=== PATIENT | female | born 1955 | race Caucasian/White ===

== ENCOUNTER 2017-04-12 18:39 | Inpatient (IN) | payer OTHER ==
[~2017-04-12] VITALS: Ht 172.7 cm; Wt 74.8 kg
[2017-04-12 19:10] VITALS: BP 120/65
--- NOTE | 2017-04-12 19:10 | NUR ---
INTAKE ASSESSMENT BP:120/65, HR: 96, RR:18, SpO2: 95%, T: 98.1 Pt is in stable condition and is able to be admitted on the unit. Unit protocols regarding medications and vital signs Q4H were explained to pt. Pt verbalized understanding. Will continue admission process upon arrival on unit.
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
[2017-04-12] MEDS ORDERED: ACETAMINOPHEN 325 MG TABLET PO PRN (20:00)
[2017-04-12] MEDS ORDERED: MIRALAX 17 GM POWD.PACK PO PRN (20:00)
[2017-04-12] MEDS ORDERED: HYDROXYZINE PAMOATE 25 MG CAPSULE PO PRN (20:00)
[2017-04-12] MEDS ORDERED: LORAZEPAM 2 MG/1 ML VIAL IM PRN (20:00)
[2017-04-12] MEDS ORDERED: LORAZEPAM 1 MG TABLET PO PRN (20:00)
[2017-04-12] MEDS ORDERED: ONDANSETRON 4 MG/2 ML VIAL IM PRN (20:00)
[2017-04-12] MEDS ORDERED: DICYCLOMINE HCL 20 MG TABLET PO PRN (20:00)
[2017-04-12] MEDS ORDERED: THIAMINE HCL 200 MG/2 ML VIAL IM ONE (20:00)
[2017-04-12] MEDS ORDERED: MAGNESIUM HYDROXIDE 30 ML LIQUID UDC PO PRN (20:00)
[2017-04-12] MEDS ORDERED: MAG HYDROX/AL HYDROX/SIMETH 30 ML LIQUID UDC PO PRN (20:00)
[2017-04-12] MEDS ORDERED: LOPERAMIDE HCL 2 MG CAPSULE PO PRN ×2 (20:00)
[2017-04-12] MEDS ORDERED: IBUPROFEN 400 MG TABLET PO PRN (20:00)
--- NOTE | 2017-04-12 20:15 | NUR ---
RN note Trazodone and Neurontin Pt verbalized that she needs to take her Trazodone 50 mg PO HS and Neurontin 900 mg PO HS. Contacted Dr. Bob and ordered these medications. Entered at [facility] and to be administered by Primary Nurse.
[2017-04-12] MEDS: LORAZEPAM 1 MG TABLET PO PRN (20:28)
--- NOTE | 2017-04-12 20:32 | NUR ---
PRN ATIVAN Pt noted to be anxious, agitated and restless. CIWA:8. PRN Ativan 1 mg administered as ordered. Safety measures in place. Will monitor effectiveness.
[2017-04-12] MEDS ORDERED: THIAMINE HCL 200 MG/2 ML VIAL ONE (20:35)
[2017-04-12] MEDS ORDERED: LORAZEPAM 1 MG TABLET ONE (20:36)
[2017-04-12] MEDS: TRAZODONE 50 MG TABLET PO SCH (20:38)
[2017-04-12] MEDS: GABAPENTIN 300 MG CAPSULE PO SCH (20:38)
--- NOTE | 2017-04-12 20:38 | NUR ---
MEDICATION REFUSAL Vit B1 injection refused. Risks/benefits explained x3, pt still refused. Safety measures in place. Will monitor.
[2017-04-12] MEDS ORDERED: GABAPENTIN 300 MG CAPSULE ONE (20:47)
[2017-04-12] MEDS ORDERED: TRAZODONE 50 MG TABLET ONE (20:47)
--- NOTE | 2017-04-12 21:32 | NUR ---
PRN ATIVAN REASSESSMENT PRN Ativan effective. Pt lying in bed with eyes closed noted to be asleep. No facial grimacing noted. Breathing even and unlabored, respirations 16. Safety measures in place. Will continue to monitor.
[2017-04-12 22:27] LABS: *AMPHETAMINE, URINE POSITIVE (NEGATIVE); *BARBITURATE, URINE NEGATIVE (NEGATIVE); *CANNABINOID, URINE NEGATIVE (NEGATIVE); *COCCAINE, URINE NEGATIVE (NEGATIVE); *OPIATE, URINE NEGATIVE (NEGATIVE); *PHENCYCLIDINE SCREEN,URINE NEGATIVE (NEGATIVE)
--- NOTE | 2017-04-12 22:40 | NUR ---
RN note refusal for blood draw Pt refused blood draw for the second time. Pt got agitated when explained of the risks and benefits. Pt requested for blood draw to be done in the morning. Dr. Bob made aware.
[2017-04-12] MEDS ORDERED: TRAZ-144 PO (23:05)
[2017-04-12] MEDS ORDERED: QUET25TA PO (23:05)
[2017-04-12] MEDS ORDERED: LEVO500T2 PO (23:05)
[2017-04-12] MEDS ORDERED: GABA-534 PO (23:05)
--- NOTE | 2017-04-13 | NUR ---
VITALS REFUSED, CIWA DEFERRED 0000 vitals refused by pt. CIWA deferred d/t pt lying in bed with eyes closed noted to be asleep. Breathing even and unlabored, respirations 16, safety measures in place. Will continue to monitor.
--- NOTE | 2017-04-13 04:00 | NUR ---
VITALS REFUSED, CIWA DEFERRED 0400 vitals refused. CIWA deferred d/t pt lying in bed with eyes closed noted to be asleep. Breathing is even and unlabored, respirations 16, safety measures in place. Will monitor.
[2017-04-13] MEDS: LORAZEPAM 1 MG TABLET PO PRN (06:47)
--- NOTE | 2017-04-13 06:47 | NUR ---
PRN ATIVAN Pt complains of sweats, anxiety, agitation and restlessness. CIWA:9. PRN Ativan 1 mg administered as ordered, safety measures in place. Will endorse to oncoming shift to reassess.
[2017-04-13] MEDS ORDERED: LORAZEPAM 1 MG TABLET ONE (06:52)
--- NOTE | 2017-04-13 06:59 | NUR ---
END OF SHIFT Pt is a 62 year old female patient admitted on 04/12/17 for ETOH and meth dependency. Pt is full code with NKA. She reports a PMHx of depression, seizure related to withdrawal 10 years ago, chronic back pain related to fall off ladder many years ago, and neuropathy of bilateral lower legs. At 2037 she received PRN Ativan 1 mg d/t CIWA of 8. At 646 she received Ativan 1 mg for CIWA:9. She slept a total of 8 hrs, Intake: 855mL, Void: x2, BM:0, CIWA:8. Pt remains alert and oriented x4, breathing is even and unlabored, and safety measures in place. Endorsed to oncoming shift.
--- NOTE | 2017-04-13 07:30 | NUR ---
PRN REASSESSMENT patient reports no relief in symptoms.she states she is still anxious, agitated, and restless. She presents with tremors. her CIWA has increased to 12. Will monitor.
[2017-04-13 08:00] VITALS: BP 125/72
--- NOTE | 2017-04-13 08:00 | NUR ---
START OF SHIFT NOTE Received patient this morning Aox4. Patient states she has a headache, shes anxious and very shakey. She presents tremulous and agitated. No taper ordered yet. PRN Ativan given x2 per night nurse. CIWA 12 at 0800 this morning. Patient slept 8 hours. Encouraged patient to increase fluid intake. Encouraged patient to rest this shift and notify RN if s/s of w/d worsen. Vital signs stable. Will provide safe and supportive environment. Will monitor closely and offer help as needed. All needs currently met.
[2017-04-13] MEDS: THIAMINE HCL 100 MG TABLET PO SCH (08:13)
[2017-04-13] MEDS: CLONIDINE HCL 0.1 MG TABLET PO PRN ×2 (08:14→20:17)
[2017-04-13] MEDS: FOLIC ACID 1 MG TABLET PO SCH (08:14)
--- NOTE | 2017-04-13 08:15 | NUR ---
PRN MEDICATION PRN CLONIDINE GIVEN FOR ANXIETY AND SWEATS. CIWA 12. WILL REASSESS
[2017-04-13] MEDS: MULTIVITAMINS,THERAPEUTIC TABLET PO SCH (08:19)
[2017-04-13] MEDS ORDERED: TUBERCULIN,PURIF.PROT.DERIV. 5 TU/0.1 ML TEST ID ONE (09:00)
--- NOTE | 2017-04-13 09:00 | NUR ---
PRN REASSESSMENT PATIENT SLEEPING IN BED WITH RR EVEN AND UNLABORED. PATIENT APPEARS LESS ANXIOUS AND IS CALMLY IN BED. BED LOCKED AND IN LOWEST POSITION CALL HERNDON WITHIN REACH
[2017-04-13 10:06] LABS: BASOPHILS % (AUTO) 0.6 % (0.0-2.0); EOSINOPHILS # (AUTO) 0.1 K/uL (0.0-0.7); HEMATOCRIT 38.2 % (37-47); HEMOGLOBIN 12.9 G/DL (12.0-16.0); LYMPHOCYTES # (AUTO) 1.1 K/UL (0.8-4.8); LYMPHOCYTES % (AUTO) 24.2 % (20.5-51.5); MEAN CORPUSCULAR HEMOGLOBIN 35.4 UUG (27.0-31.0); MEAN CORPUSCULAR HGB CONC 34 g/dL (32.0-37.0); MEAN CORPUSCULAR VOLUME 105.1 FL (81.0-99.0); MONOCYTES # (AUTO) 0.6 K/UL (0.1-1.30); MONOCYTES % (AUTO) 12.8 % (0.0-11.0); NEUTROPHILS # (AUTO) 2.5 K/UL (1.8-8.9); NEUTROPHILS % (AUTO) 60.4 % (38.5-71.5); PLATELET COUNT (AUTO) 137 K/UL (150-450); RED BLOOD CELL COUNT(AUTO) 3.63 MIL/UL (4.2-5.4); WHITE BLOOD COUNT (AUTO) 4.4 K/UL (4.0-11.2)
[2017-04-13 10:16] LABS: ETHANOL < 3 MG/DL (0-0)
[2017-04-13 10:17] LABS: ALANINE AMINOTRANSFERASE 73 U/L (14-59); ALKALINE PHOSPHATASE 68 U/L (50-136); AMYLASE 81 U/L (25-115); ASPARTATE AMINOTRANSFERASE 105 U/L (15-37); BILIRUBIN,TOTAL 0.9 mg/dL (0.2-1.0); CARBON DIOXIDE 27 mmol/L (21-32); CHLORIDE 104 mmol/L (98-107); GLUCOSE 134 mg/dL (74-106); LIPASE 264 U/L (73-393); MAGNESIUM 1.3 mg/dL (1.8-2.4); POTASSIUM 3.4 mmol/L (3.5-5.1); TOTAL PROTEIN, SERUM 6.4 g/dL (6.4-8.2); UREA NITROGEN, BLOOD 21 mg/dL (7-18)
[2017-04-13 10:30] LABS: THYROID STIMULATING HORMONE 1.248 mIU/mL (0.358-3.740)
[2017-04-13] MEDS: LORAZEPAM 1 MG TABLET PO SCH ×4 (10:37→20:17)
[2017-04-13 12:00] VITALS: BP 111/63
[2017-04-13] MEDS: GABAPENTIN 300 MG CAPSULE PO SCH ×3 (14:18→21:00)
[2017-04-13] MEDS ORDERED: MAGNESIUM OXIDE 400 MG TABLET PO ONE (15:00)
[2017-04-13] MEDS ORDERED: POTASSIUM CHLORIDE 20 MEQ TAB.PRT.SR PO ONE (15:00)
[2017-04-13 16:00] VITALS: BP 116/71
--- NOTE | 2017-04-13 18:51 | NUR ---
END OF SHIFT NOTE Patient started on 5 day Ativan taper during shift and tolerating well. PRN clonidine given at 0815 with effectiveness. Last CIWA 8. Patient presents tremulous during shift. Patient did not attend groups or activities. She isolated self in room most of shift and slept. Patient ate all of meals. Vital signs stable. All needs have been met. Safety measures in place. Will endorse to night nurse
[2017-04-13 20:00] VITALS: BP 120/62
--- NOTE | 2017-04-13 20:00 | NUR ---
Start of Shift Note: Report received from day shift nurse. Pt is a 62 Y/O female admitted on 04/12/2017 for medically-supervised withdrawal from ETOH and methamphetamine. Pt reports drinking 750ml vodka daily for two years and occasional use of methamphetamine. Pt is on a 5-day Ativan taper. Pt received with last CIWA=8, and PRN Catapres was given during day shift. Full code, NKA, on a regular diet. Pt reports PMHx: depression, Hx of SZ r/t withdrawal, chronic back pain, and neuropathy. Pt received in room and reports anxiety, nausea, tremor, tactile disturbances, headache; patient is disoriented by date > 2 days. Bed is in low position and locked, side rails up x2, call light within reach. Will continue to monitor.
[2017-04-13] MEDS: ONDANSETRON ODT 4 MG TAB.RAPDIS SL PRN (20:17)
[2017-04-13] MEDS: TRAZODONE 50 MG TABLET PO SCH (20:17)
[2017-04-13] MEDS: QUETIAPINE FUMARATE 25 MG TABLET PO SCH (20:18)
--- NOTE | 2017-04-13 20:21 | NUR ---
PRN's Zofran, Motrin, Clonidine: Patient complains of nausea. Administered PRN Zofran SL as ordered. Patient complains of severe headache. Patient rates pain 8/10. Administered PRN Motrin as ordered. Patient noted to be diaphoretic and with moderate bilateral hand tremor. Patient also complains of anxiety. Administered PRN Clonidine as ordered. Will continue to monitor.
[2017-04-13] MEDS ORDERED: TRAZODONE 50 MG TABLET PO SCH (21:00)
--- NOTE | 2017-04-13 21:25 | NUR ---
PRN Reassessment: Patient is in bed with eyes closed. Respirations are even and unlabored. No s/s of acute distress noted. PRN's Motrin, Clonidine, and Zofran effective.
[2017-04-14] VITALS: BP 87/52
--- NOTE | 2017-04-14 | NUR ---
CIWA Deferred: CIWA is deferred for sleep. V/S stable. All safety precautions are in place. Will continue to monitor. Addendum: 04/14/17 at 0136 by DARLENE RUSSELL RN Amended: Links added.
[2017-04-14 04:00] VITALS: BP 100/58
--- NOTE | 2017-04-14 04:00 | NUR ---
CIWA Deferred: CIWA assessment is deferred for sleep. V/S stable. All safety precautions are in place. Will continue to monitor. Addendum: 04/14/17 at 0455 by DALRENE RUSSELL RN Amended: Links added.
--- NOTE | 2017-04-14 06:48 | NUR ---
End of Shift Note: Pt is a 62 Y/O female admitted to [facility] on 04/12/2017 for medically-supervised withdrawal from ETOH and methamphetamine. Pt reports a PMHx of depression, Hx of SZ r/t withdrawal, chronic back pain, and neuropathy. Pt is a full code. Pt reports NKA. Pt is on a regular diet. Pt reported drinking 750ml vodka daily for two years and occasional use of methamphetamine and was placed on a 5-day Ativan taper. Scheduled medication regime effectively managed s/s of withdrawal this shift, in addition to PRN Motrin for headache, PRN Catapres for diaphoresis, and PRN Zofran for nausea. Last CIWA=18 at 20:00 before taper medications were administered. V/S stable throughout shift, with tachycardia. Total fluid intake this shift: 2065 ml oral; output: urine x 2 and BM x 0. Pt is currently in bed and slept 10 hours this shift. All needs attended and met. Pt endorsed to day shift nurse.
--- NOTE | 2017-04-14 07:56 | NUR ---
START OF SHIFT NOTE Received patient this morning laying in bed eating snacks watching TV. Patient reports feeling shakey this morning and slept on and off last night. She is on 5 day Ativan taper. Last CIWA 18 per night nurse. PRN Motrin, Clonidine, and Zofran given per finish production manager and patient slept 10 hours. Encouraged patient to increase fluid intake. Encouraged patient to attend groups and activities this shift. Will provide safe and supportive environment. Will monitor closely and offer help as needed. All needs currently met.
[2017-04-14 08:00] VITALS: BP 108/68
[2017-04-14] MEDS: THIAMINE HCL 100 MG TABLET PO SCH (08:28)
[2017-04-14] MEDS: GABAPENTIN 300 MG CAPSULE PO SCH ×4 (08:28→21:00)
[2017-04-14] MEDS: MULTIVITAMINS,THERAPEUTIC TABLET PO SCH (08:28)
[2017-04-14] MEDS: LORAZEPAM 1 MG TABLET PO SCH ×3 (08:28→20:06)
[2017-04-14] MEDS: FOLIC ACID 1 MG TABLET PO SCH (08:28)
--- NOTE | 2017-04-14 10:57 | NUR ---
Therapist prompted client about group times. Client stated she is not attending today because she does not feel well.
[2017-04-14 10:58] LABS: MAGNESIUM 1.5 mg/dL (1.8-2.4); POTASSIUM 4.4 mmol/L (3.5-5.1)
[2017-04-14 12:00] VITALS: BP 112/67
[2017-04-14] MEDS ORDERED: LORAZEPAM 1 MG TABLET PO ONE (12:30)
[2017-04-14] MEDS ORDERED: IBUPROFEN 400 MG TABLET PO PRN (13:30)
[2017-04-14] MEDS ORDERED: LORAZEPAM 1 MG TABLET PO PRN ×2 (13:30)
[2017-04-14] MEDS ORDERED: IBUPROFEN 600 MG TABLET PO PRN (14:00)
[2017-04-14] MEDS: DICYCLOMINE HCL 20 MG TABLET PO SCH ×3 (14:00→23:34)
[2017-04-14] MEDS: ACETAMINOPHEN ES 500 MG TABLET PO SCH ×2 (14:00→22:00)
[2017-04-14 14:08] LABS: HEPATITIS B SURFACE AG Negative (Negative)
[2017-04-14 16:00] VITALS: BP 117/69
[2017-04-14] MEDS ORDERED: MAGNESIUM OXIDE 400 MG TABLET PO ONE (18:15)
--- NOTE | 2017-04-14 18:25 | NUR ---
END OF SHIFT NOTE Patient continues on 5 day Ativan taper during shift and tolerating well. No PRNs given during shift as detox meds are effective. Last CIWA 6. Patient presents anxious and agitated during shift. Patient did not attend groups or activities. She isolated self in room most of shift and slept. Patient ate all of meals. Vital signs stable. All needs have been met. Safety measures in place. Will endorse to night nurse
--- NOTE | 2017-04-14 19:15 | NUR ---
START OF SHIFT Received 62 year old female admitted on 04/12/17 for ETOH dependency. Pt is full code with NKA. She reports a PMHx of depression, seizure r/t withdrawal 10 years ago, chronic back pain and neuropathy. She reports drinking vodka 1/5th daily for 2 years. Last dose was a " couple of beers and shots" on 04/12/17. Pt also reports occasionally smoking methamphetamine a " few hits". Last dose was 04/09/17. She is placed on a 5 day Ativan taper and tolerating well. Pt is alert and oriented x4, breathing is even and unlabored. Safety measures in place. Will continue to monitor.
[2017-04-14 20:01] VITALS: BP 105/60
[2017-04-14] MEDS: TRAZODONE 50 MG TABLET PO SCH (20:06)
[2017-04-14] MEDS: QUETIAPINE FUMARATE 25 MG TABLET PO SCH (20:06)
--- NOTE | 2017-04-14 23:34 | NUR ---
MEDICATION REFUSAL Pt refused 2200 dose of Tylenol 1,000 mg and 0000 dose of Bentyl. Risks/benefits explained x3, pt still refused. Breathing is even and unlabored, safety measures in place. Will continue to monitor.
--- NOTE | 2017-04-15 | NUR ---
VITALS REFUSED/CIWA DEFERRED 0000 vitals refused. CIWA deferred d/t pt lying in bed with eyes closed noted to be asleep. Respirations 16, breathing is even and unlabored. Safety measures in place. Will monitor.
--- NOTE | 2017-04-15 04:00 | NUR ---
VITALS REFUSED/CIWA DEFERRED 0400 vitals refused. CIWA deferred d/t pt lying in bed with eyes closed noted to be asleep. Respirations 16, breathing is even and unlabored. Safety measures in place. Will monitor.
--- NOTE | 2017-04-15 05:23 | NUR ---
PRN VISTARIL Pt complains of anxiety/restlessness. PRN Vistaril administered as ordered. Breathing even and unlabored, safety measures in place. Will monitor effectiveness.
[2017-04-15] MEDS: DICYCLOMINE HCL 20 MG TABLET PO SCH ×3 (05:25→18:00)
[2017-04-15] MEDS: ACETAMINOPHEN ES 500 MG TABLET PO SCH ×3 (05:28→21:21)
--- NOTE | 2017-04-15 06:23 | NUR ---
PRN VISTARIL REASSESSMENT PRN medication effective. Pt lying comfortably in bed with eyes closed, noted to be asleep. No facial grimacing noted. Respirations 16, breathing even and unlabored. Safety measures in place. Will monitor.
--- NOTE | 2017-04-15 07:09 | NUR ---
END OF SHIFT Pt is a 62 year old female admitted on 04/12/17 for ETOH dependency. Pt is full code with NKA. She reports a PMHx of depression, seizure r/t withdrawal 10 years ago, chronic back pain and neuropathy. She continues on a 5 day Ativan taper and tolerating well. She refused her 2200 dose of Tylenol and 0000 dose of Bentyl. At 0523 she received PRN Vistaril. She slept a total of 7 hrs, Intake: 1350mL, Void: x1, BM:0, CIWA:5. Pt remains alert and oriented x4, breathing is even and unlabored. Safety meaures in place. Endorsed to AM shift.
[2017-04-15 07:29] LABS: MAGNESIUM 1.3 mg/dL (1.8-2.4); POTASSIUM 4.2 mmol/L (3.5-5.1)
--- NOTE | 2017-04-15 08:08 | NUR ---
Start of Shift Received 62 year old female admitted on 04/12/17 for ETOH detoxification, pt also endorses occasional methamphetamine use. Pt is a full code, NKDA and on a regular diet. Pt is on seizure, universal and fall precautions. PMH of depression, seizure DO, r/t withdrawal 10 years ago, Neuropathy and chronic back pain. Pt has a healing scab on the right hand. Administered Vistaril, PRN, on NOC shift, but refused her scheduled Tylenol (2200 ) and Bentyl (0000). Pt slept for 7 hours. Currently on a 5 day Ativan taper, tolerating well. Last CIWA of 5 recorded at 1999. Pts gait noted to be unsteady at times, wheelchair at bedside. It is reported to be thinking of leaving today, possibly AMA. City Bus Driver encounters pt in bed resting with eyes closed, breathing even and unlabored, in no distress. Bed In low position, wheels locked and side rails up x2. All safety measures in place. Will continue to monitor, support and encourage according to plan of care.
[2017-04-15 08:50] VITALS: BP 120/76
[2017-04-15] MEDS: THIAMINE HCL 100 MG TABLET PO SCH (09:28)
[2017-04-15] MEDS: LORAZEPAM 1 MG TABLET PO SCH ×2 (09:28→12:04)
[2017-04-15] MEDS: MULTIVITAMINS,THERAPEUTIC TABLET PO SCH (09:28)
[2017-04-15] MEDS: GABAPENTIN 300 MG CAPSULE PO SCH ×3 (09:28→21:19)
[2017-04-15] MEDS: FOLIC ACID 1 MG TABLET PO SCH (09:28)
[2017-04-15 12:40] VITALS: BP 127/85
[2017-04-15] MEDS ORDERED: KETOROLAC TROMETHAMINE 30 MG INJ IM PRN (13:45)
[2017-04-15] MEDS ORDERED: HYDROXYZINE PAMOATE 25 MG CAPSULE PO SCH (14:00)
[2017-04-15] MEDS: MAGNESIUM OXIDE 400 MG TABLET PO SCH (14:10)
[2017-04-15] MEDS: HYDROXYZINE PAMOATE 25 MG CAPSULE PO SCH ×2 (14:11→21:20)
[2017-04-15] MEDS ORDERED: CLONIDINE HCL 0.1 MG TABLET PO PRN (14:15)
[2017-04-15] MEDS ORDERED: LORAZEPAM 1 MG TABLET PO SCH (15:00)
[2017-04-15] MEDS: SCOPOLAMINE HYDROBROMIDE 1.5 MG PATCH TD SCH (15:11)
[2017-04-15 16:50] VITALS: BP 112/75
--- NOTE | 2017-04-15 19:15 | NUR ---
START OF SHIFT Received 62 year old female admitted on 04/12/17 for ETOH dependency. Pt is full code with NKA. She reports a PMHx of depression, seizure r/t withdrawal 10 years ago, chronic back pain and neuropathy. She reports drinking vodka 1/5th daily for 2 years. Last dose was a " couple of beers and shots" on 04/12/17. Pt also reports occasionally smoking methamphetamine a " few hits". Last dose was 04/09/17. She is placed on a 5 day Ativan taper started on 04/13/17. Pt is currently on day 3/5 and tolerating well. Per endorsement, 1800 dose of Bentyl was held d/t pt was asleep. Pt is alert and oriented x4, breathing is even and unlabored. Safety measures in place. Will continue to monitor.
--- NOTE | 2017-04-15 19:30 | NUR ---
Start of Shift Report provided to oncoming nurse, pt in stable condition. Pt is a 62 year old female admitted on 04/12/17 for ETOH detoxification, pt also endorses occasional methamphetamine use. Pt is a full code, NKDA and on a regular diet. Pt is on seizure, universal and fall precautions. PMH of depression, seizure DO, r/t withdrawal 10 years ago, Neuropathy and chronic back pain. Pt has a healing scab on the right hand. No PRN medication administered on my shift. Currently on a 5 day Ativan taper, which was extended today with an increase to 2mg of Ativan from the scheduled 1mg, as pt complained of being under medicated. Last CIWA of 5 recorded at 1600. Pts gait noted to be unsteady at times, wheelchair at bedside. Pt has been mostly isolative to room, with little peer interaction. Pt has been in bed most of the shift and has been somnolent. Pt was irritable when stating she is not getting better and she was being under medicated. Pt mentioned leaving, but spoke with MD and decided to stay after MD made medication changes. Bed In low position, wheels locked and side rails up x2. All safety measures in place. Addendum: 04/15/17 at 1931 by CAROL HANNON RN END OF SHIFT
[2017-04-15 20:00] VITALS: BP 119/71
[2017-04-15] MEDS: QUETIAPINE FUMARATE 25 MG TABLET PO SCH (21:19)
[2017-04-15] MEDS: TRAZODONE 50 MG TABLET PO SCH (21:20)
--- NOTE | 2017-04-16 | NUR ---
VITALS REFUSED/CIWA DEFERRED 0000 vitals refused. CIWA deferred d/t pt lying in bed with eyes closed noted to be asleep. Respirations 16, breathing is even and unlabored. Safety measures in place. Will continue to monitor.
[2017-04-16] MEDS: HYDROXYZINE PAMOATE 25 MG CAPSULE PO SCH ×4 (02:15→20:36)
[2017-04-16] MEDS: DICYCLOMINE HCL 20 MG TABLET PO SCH ×5 (06:21→23:07)
[2017-04-16] MEDS: ACETAMINOPHEN ES 500 MG TABLET PO SCH ×3 (06:21→23:06)
--- NOTE | 2017-04-16 07:12 | NUR ---
END OF SHIFT Pt is a 62 year old female admitted on 04/12/17 for ETOH dependency. Pt is full code with NKA. She reports a PMHx of depression, seizure r/t withdrawal 10 years ago, chronic back pain and neuropathy. She continues on a 5 day Ativan taper started on 04/13/17. Pt is currently on day 4/5 and tolerating well. She did not receive or request PRN medications. Her 0000 dose of Bentyl and 0215 dose of Vistaril was held d/t pt was asleep. She slept a total of 10 hrs, Intake: 850mL, Void: x2, BM:x1. Pt remains alert and oriented x4, breathing is even and unlabored. Safety measures in place. Endorsed to oncoming shift.
--- NOTE | 2017-04-16 07:58 | NUR ---
Start of Shift Received 62 year old female admitted on 04/12/17 for ETOH detoxification, pt also endorses occasional methamphetamine use. Pt is a full code, NKDA and on a regular diet. Pt is on seizure, universal and fall precautions. PMH of depression, seizure DO, r/t withdrawal 10 years ago, Neuropathy and chronic back pain. Pt has a healing scab on the right hand. Pt did not receive any PRN medication during the night. Pt's Bentyl (0000) and Vistaril(0215) were held for sedation. Currently on a 5 day Ativan taper, tolerating well. Last CIWA of 5 recorded at 1999. Pts gait noted to be unsteady at times, wheelchair at bedside. End Lathe Operator encounters pt resting in bed. A/O x4, states, " I am feeling better." Endorses posssibly being over the difficult part of detoxification. Pt is calm and cooperative, able to make her needs known. Blunted affect and depressed mood. Bed In low position, wheels locked and side rails up x2. All safety measures in place. Will continue to monitor, support and encourage according to plan of care.
[2017-04-16 08:38] VITALS: BP 122/74
[2017-04-16] MEDS ORDERED: LORAZEPAM 1 MG TABLET PO SCH (09:00)
[2017-04-16] MEDS: GABAPENTIN 300 MG CAPSULE PO SCH ×3 (09:17→20:35)
[2017-04-16] MEDS: THIAMINE HCL 100 MG TABLET PO SCH (09:17)
[2017-04-16] MEDS: MAGNESIUM OXIDE 400 MG TABLET PO SCH (09:17)
[2017-04-16] MEDS: FOLIC ACID 1 MG TABLET PO SCH (09:17)
[2017-04-16] MEDS: MULTIVITAMINS,THERAPEUTIC TABLET PO SCH (09:17)
[2017-04-16] MEDS: LORAZEPAM 1 MG TABLET PO SCH ×4 (09:18→20:35)
[2017-04-16] MEDS ORDERED: FLUCONAZOLE 100 MG TABLET PO ONE (12:45)
[2017-04-16] MEDS ORDERED: AZITHROMYCIN 250 MG TABLET PO ONE (12:45)
[2017-04-16] MEDS ORDERED: METRONIDAZOLE 500 MG TABLET PO SCH (12:45)
[2017-04-16] MEDS ORDERED: AZITHROMYCIN 250 MG TABLET PO SCH (12:45)
[2017-04-16 13:11] VITALS: BP 114/79
[2017-04-16] MEDS ORDERED: MAGNESIUM OXIDE 400 MG TABLET PO ONE (14:00)
[2017-04-16 17:32] VITALS: BP 124/96
--- NOTE | 2017-04-16 19:08 | NUR ---
End of Shift Report provided to night worker with no further comments, questions or concerns voiced. Pt is a 62 year old female admitted on 04/12/17 for ETOH detoxification, pt also endorses occasional methamphetamine use. Pt is a full code, NKDA and on a regular diet. Pt is on seizure, universal and fall precautions. PMH of depression, seizure DO, r/t withdrawal 10 years ago, Neuropathy and chronic back pain. Pt has a healing scab on the right hand. Pt did not request any PRN medication this shift, but does complain she is not getting enough Ativan, although, pt endorses feeling much better then yesterday. Currently on a 5 day Ativan taper, tolerating well. Last CIWA of 4 recorded at 1600. Pts gait noted to be unsteady at times, wheelchair at bedside. Pt is calm and cooperative, able to make her needs known. Blunted affect and depressed mood. Pt lacks personal hygiene and is malodorous with trash strewn about room. Bed In low position, wheels locked and side rails up x2. All safety measures in place per hospital policy.
--- NOTE | 2017-04-16 19:15 | NUR ---
START OF SHIFT Received 62 year old female admitted on 04/12/17 for ETOH dependency. Pt is full code with NKA. She reports a PMHx of depression, seizure r/t withdrawal 10 years ago, chronic back pain and neuropathy. She reports drinking vodka 1/5th daily for 2 years. Last dose was a " couple of beers and shots" on 04/12/17. Pt also reports occasionally smoking methamphetamine a " few hits". Last dose was 04/09/17. She is placed on a 5 day Ativan taper started on 04/13/17. Pt is currently on day 4/5 and tolerating well. Per endorsement, pt did not receive or request PRN medications. Pt is alert and oriented x3, somewhat confused, breathing is even and unlabored. Safety measures in place. Will continue to monitor.
[2017-04-16 20:00] VITALS: BP 130/93
[2017-04-16] MEDS: QUETIAPINE FUMARATE 25 MG TABLET PO SCH (20:34)
[2017-04-16] MEDS: TRAZODONE 50 MG TABLET PO SCH (20:35)
[2017-04-17] VITALS: BP 116/79
--- NOTE | 2017-04-17 | NUR ---
CIWA DEFERRED CIWA deferred d/t pt lying in bed with eyes closed noted to be asleep. Respirations 16, breathing is even and unlabored. Safety measures in place. Will continue to monitor.
[2017-04-17] MEDS: HYDROXYZINE PAMOATE 25 MG CAPSULE PO SCH ×4 (02:15→21:50)
[2017-04-17 04:00] VITALS: BP 122/72
[2017-04-17] MEDS: ACETAMINOPHEN ES 500 MG TABLET PO SCH ×3 (06:03→21:51)
[2017-04-17] MEDS: DICYCLOMINE HCL 20 MG TABLET PO SCH ×3 (06:03→17:46)
--- NOTE | 2017-04-17 07:23 | NUR ---
END OF SHIFT Pt is a 62 year old female admitted on 04/12/17 for ETOH dependency. Pt is full code with NKA. She reports a PMHx of depression, seizure r/t withdrawal 10 years ago, chronic back pain and neuropathy. She is placed on a 5 day Ativan taper started on 04/13/17. Pt is currently on day 5/5 and tolerating well. Pt did not receive or request PRN medications. Pt is alert and oriented x2, and experienced confusion during the shift. Pt was able to be redirected. She slept a total of 3 hrs, Intake: 1065mL Void: x3 BM:0 CIWA:4. Breathing is even and unlabored. Safety measures in place. Endorsed to oncoming shift.
[2017-04-17 08:00] VITALS: BP 135/82
[2017-04-17] MEDS: FOLIC ACID 1 MG TABLET PO SCH (08:13)
[2017-04-17] MEDS: MAGNESIUM OXIDE 400 MG TABLET PO SCH (08:13)
[2017-04-17] MEDS: THIAMINE HCL 100 MG TABLET PO SCH (08:13)
[2017-04-17] MEDS: MULTIVITAMINS,THERAPEUTIC TABLET PO SCH (08:13)
[2017-04-17] MEDS: LORAZEPAM 1 MG TABLET PO SCH ×3 (08:13→21:51)
[2017-04-17] MEDS: GABAPENTIN 300 MG CAPSULE PO SCH ×3 (08:13→21:50)
[2017-04-17] MEDS: IBUPROFEN 600 MG TABLET PO PRN (08:45)
--- NOTE | 2017-04-17 08:45 | NUR ---
PRN IBUPROFEN Patient complained of body aches and headache 03/08. PRN ibuprofen given . Will continue to monitor patient.
--- NOTE | 2017-04-17 08:54 | NUR ---
START OF SHIFT Received report from table games shift manager nurse. Patient is 62 year old female admitted for medically supervised withdrawal from alcohol. Patient is full code with NKA. On assessment this AM: CIWA: 7. Denies SOB, chest pain. vitals signs WNL. Reports anxiety, mild tremors, headache 6/10 and visual hallucinations. Med compliant with AM meds. On 5-day Ativan taper. PRN ibuprofen given. Patient was noted in a wheelchair assisted by tech, able to transfer independently. Tolerating breakfast without n/v at this time. ill continue to monitor patient. Patient was encouraged to attend group meetings today. Will continue to monitor patient.
[2017-04-17 08:58] LABS: MAGNESIUM 1.7 mg/dL (1.8-2.4); POTASSIUM 4.8 mmol/L (3.5-5.1)
[2017-04-17] MEDS ORDERED: LORAZEPAM 1 MG TABLET PO SCH ×2 (09:00→17:00)
[2017-04-17 09:13] LABS: BASOPHILS % (AUTO) 0.6 % (0.0-2.0); EOSINOPHILS # (AUTO) 0.1 K/uL (0.0-0.7); EOSINOPHILS % (AUTO) 1.9 % (0.0-7.0); HEMATOCRIT 39.3 % (37-47); HEMOGLOBIN 12.5 G/DL (12.0-16.0); LYMPHOCYTES # (AUTO) 0.9 K/UL (0.8-4.8); LYMPHOCYTES % (AUTO) 23.8 % (20.5-51.5); MEAN CORPUSCULAR HEMOGLOBIN 33.7 UUG (27.0-31.0); MEAN CORPUSCULAR HGB CONC 32 g/dL (32.0-37.0); MEAN CORPUSCULAR VOLUME 105.5 FL (81.0-99.0); MONOCYTES # (AUTO) 0.5 K/UL (0.1-1.30); MONOCYTES % (AUTO) 13.1 % (0.0-11.0); NEUTROPHILS # (AUTO) 2.3 K/UL (1.8-8.9); NEUTROPHILS % (AUTO) 60.6 % (38.5-71.5); PLATELET COUNT (AUTO) 146 K/UL (150-450); RED BLOOD CELL COUNT(AUTO) 3.72 MIL/UL (4.2-5.4); WHITE BLOOD COUNT (AUTO) 3.8 K/UL (4.0-11.2)
[2017-04-17 12:00] VITALS: BP 114/65
[2017-04-17] MEDS ORDERED: MAGNESIUM OXIDE 400 MG TABLET PO ONE (14:00)
[2017-04-17 14:09] LABS: *BILIRUBIN,URIN NEGATIVE (NEGATIVE); *BLOOD, URINE NEGATIVE (NEGATIVE); *CLARITY,URINE CLEAR (CLEAR); *COLOR,URINE YELLOW (YELLOW); *KETONES,URINE NEGATIVE (NEGATIVE); *PROTEIN,URINE NEGATIVE (NEGATIVE); *UROBILINOGEN,URINE 0.2 E.U./dl (NORMAL); LEUKOCYTE ESTERASE ,URINE TRACE (NEGATIVE); NITRITE, URINE NEGATIVE (NEGATIVE); UGLUCOSE NEGATIVE (NEGATIVE)
[2017-04-17 14:12] LABS: BACTERIA,URINE NONE SEEN /HPF (NONE SEEN); RBC,URINE NONE SEEN /HPF (0-3); WBC,URINE 0-3 /HPF (0-3)
[2017-04-17 14:13] LABS: SQUAMOUS EPITHELIAL CELL,UR FEW /HPF (NONE SEEN)
[2017-04-17 16:00] VITALS: BP 143/89
--- NOTE | 2017-04-17 17:16 | NUR ---
PRN KETOROLAC IM INJECTION Patient complains of headache 07/08. PRN ketorolac IM injection given. Will continue to monitor patient.
--- NOTE | 2017-04-17 18:16 | NUR ---
REASSESSMENT PRN KETOROLAC IM INJECTION Patient reports 0/10 pain level, med effective.
--- NOTE | 2017-04-17 18:34 | NUR ---
END OF SHIFT Received report from manufacturing supervisor 2nd shift nurse. Patient is 62 year old female admitted for medically supervised withdrawal from alcohol. Patient is full code with NKA. Most recent CIWA: 7. Patient reports anxiety, tremors and headache. PRN ketorolac IM injection given for pain 10/10, effective, pt, reports no pain after an hour. Compliant with routine meds during this shift. Patient tolerating meals without n/v. area secretarymanufacturing supervisor 2nd shift will continue to monitor patient.
--- NOTE | 2017-04-17 20:00 | NUR ---
START OF SHIFT Patient is 62 year old female admitted for medically supervised withdrawal from alcohol. Patient is full code with NKA. Most recent CIWA: 4. Patient reports anxiety and tremors. Denies pain, headache and n/v. Patient is anxious but cooperative, will continue to monitor patient.
[2017-04-17 20:42] VITALS: BP 127/81
[2017-04-17] MEDS: QUETIAPINE FUMARATE 25 MG TABLET PO SCH (21:50)
[2017-04-17] MEDS: TRAZODONE 50 MG TABLET PO SCH (21:51)
--- NOTE | 2017-04-18 | NUR ---
Pt is resting, no distress noted. Addendum: 04/18/17 at 0017 by JAI ISAAC RN Amended: Links added.
[2017-04-18] MEDS: DICYCLOMINE HCL 20 MG TABLET PO SCH ×4 (00:04→17:21)
[2017-04-18] MEDS: HYDROXYZINE PAMOATE 25 MG CAPSULE PO SCH ×4 (02:28→21:06)
[2017-04-18 04:00] VITALS: BP 134/94
[2017-04-18] MEDS: ACETAMINOPHEN ES 500 MG TABLET PO SCH ×3 (05:39→21:07)
--- NOTE | 2017-04-18 07:19 | NUR ---
End of Shift Patient is 62 year old female admitted for medically supervised withdrawal from alcohol. Patient is full code with NKA. Most recent CIWA: 7. Patient reports anxiety and tremors. Denies pain, headache and n/v. Patient is anxious and confused, but cooperative. Slept 4.75 during shift. No distress noted, will continue to monitor patient.
--- NOTE | 2017-04-18 07:55 | NUR ---
Start of Shift Received 62 year old female admitted on 04/12/17 for ETOH detoxification, pt also endorses occasional methamphetamine use. Pt is a full code, NKDA and on a regular diet. Pt is on seizure, universal and fall precautions. PMH of depression, seizure DO, r/t withdrawal 10 years ago, Neuropathy and chronic back pain. Pt has a healing scab on the right hand. Pt did not receive any PRN medication during the night. Currently on a 5 day Ativan taper, tolerating well. Last CIWA of 7 recorded at 0400. Pts gait noted to be unsteady at times, wheelchair at bedside. Radial Drill Press Set Up Operator encounters pt resting in bed. A/O x4, states, calm and cooperative, able to make her needs known. Blunted affect and depressed mood. Pt was noted to have confusion and some delusions early this morning, was found to be wandering and speaking to self, per report. Bed In low position, wheels locked, side rails up x2 and call light within reach. All safety measures in place. Will continue to monitor, support and encourage according to plan of care.
[2017-04-18 08:12] VITALS: BP 117/76
[2017-04-18 08:26] LABS: MAGNESIUM 1.9 mg/dL (1.8-2.4); POTASSIUM 4.7 mmol/L (3.5-5.1)
[2017-04-18] MEDS: FOLIC ACID 1 MG TABLET PO SCH (08:32)
[2017-04-18] MEDS: SCOPOLAMINE HYDROBROMIDE 1.5 MG PATCH TD SCH (08:32)
[2017-04-18] MEDS: GABAPENTIN 300 MG CAPSULE PO SCH ×3 (08:32→21:06)
[2017-04-18] MEDS: MULTIVITAMINS,THERAPEUTIC TABLET PO SCH (08:32)
[2017-04-18] MEDS: THIAMINE HCL 100 MG TABLET PO SCH (08:32)
[2017-04-18] MEDS ORDERED: LORAZEPAM 1 MG TABLET PO SCH (09:00)
[2017-04-18 12:00] VITALS: BP 139/91
--- NOTE | 2017-04-18 12:11 | NUR ---
Endorsement Newsroom Intern provided report to accepting nurse with no further comments, questions or concerns. Pt is a 62 year old female admitted on 04/12/17 for ETOH detoxification, pt also endorses occasional methamphetamine use. Pt is a full code, NKDA and on a regular diet. Pt is on seizure, universal and fall precautions. PMH of depression, seizure DO, r/t withdrawal 10 years ago, Neuropathy and chronic back pain. Pt has a healing scab on the right hand. Pt did not receive any PRN medication during my shift. Pt has been calm and cooperative and able to make needs known. No s/s of distress noted. Bed in low position, wheels locked, side rails up x2 and call light in reach. All safety measures in place per hospital policy. Will continue to monitor, support and encourage according to plan of care.
--- NOTE | 2017-04-18 12:30 | NUR ---
TRANSFER CARE OF PATIENT Received report on patient. Patient is alert and stable. All safety measures in place. Will continue to monitor.
[2017-04-18 16:00] VITALS: BP 125/90
--- NOTE | 2017-04-18 18:45 | NUR ---
END OF SHIFT REPORT Patient is alert and orientated at times. Patients room is near nurses station and is closely being monitored. Patient is confused at time but is aware of her situation. Patients vital signs are WNL Last CIWA 5. Patient has been complaint with medication treatment and MDs orders. Patient is on a Ativan taper and is tolerating well. No PRN medications given during day shift. All safety measures are in place, call light within reach, bed locked and in lowest position. All needs have been met. Will endorse to oncoming night nurse.
--- NOTE | 2017-04-18 19:00 | NUR ---
Start of Shift Patient Received. Patient is a 62 year old female that was admitted on 04/12/17 for ETOH Dependence under the care of Dr. Bob. Patient is currently receiving a 5 day Ativan taper. Patient verbalizes no known allergies, wishes to be full code, following a regular diet, skin intact, placed on fall and seizure precautions. Patients past medical history noted as Depression, Seizure Related to withdrawal approx 10 years ago, chronic back pain, neuropathy. Per endorsement, patient noted with episodes of confusion. Last noted CIWA is 8. All needs attended to promptly. Will continue to monitor.
[2017-04-18 20:08] VITALS: BP 138/85
[2017-04-18] MEDS ORDERED: LORAZEPAM 1 MG TABLET PO ONE (21:00)
[2017-04-18] MEDS: TRAZODONE 50 MG TABLET PO SCH (21:06)
[2017-04-18] MEDS: LACTOBACILLUS RHAMNOSUS GG 1 EACH CAPSULE PO SCH (21:06)
[2017-04-18] MEDS: NITROFURANTOIN/NITROFURAN MAC 100 MG CAPSULE PO SCH (21:06)
[2017-04-18] MEDS: QUETIAPINE FUMARATE 25 MG TABLET PO SCH (21:07)
[2017-04-19 00:19] VITALS: BP 128/89
[2017-04-19] MEDS: DICYCLOMINE HCL 20 MG TABLET PO SCH ×4 (00:21→18:21)
[2017-04-19] MEDS: diphenhydrAMINE 50 MG CAPSULE PO PRN (02:29)
[2017-04-19] MEDS: IBUPROFEN 600 MG TABLET PO PRN ×2 (02:29→10:43)
[2017-04-19] MEDS: HYDROXYZINE PAMOATE 25 MG CAPSULE PO SCH ×4 (02:30→20:46)
--- NOTE | 2017-04-19 02:32 | NUR ---
PRN Medication Administration Patient noted awake, restless, noted with increased tremors, slight agitation, and verbalizing increased pain of 5/10 due to a headache and inability of falling asleep. PRN Motrin, Vistaril and Benadryl administered. Will continue to monitor.
--- NOTE | 2017-04-19 03:30 | NUR ---
PRN Medication Reassessment Patient returning from smoking patio and is able to verbalize "my headache is gone and I feel like I can go back to sleep now." PRN Benadryl, Vistaril, and Motrin noted to be effective. Will continue to monitor.
[2017-04-19 04:06] VITALS: BP 127/83
[2017-04-19] MEDS: ACETAMINOPHEN ES 500 MG TABLET PO SCH ×3 (05:11→22:00)
--- NOTE | 2017-04-19 07:12 | NUR ---
End of Shift Patient is in bed awake and alert to name. Breathing even and non labored. No pain or discomfort noted. Patient is a 62 year old female admitted for ETOH Dependence and receiving a 5 day Ativan taper. Patient continues with episodes of confusion with numerous attempts of redirection and reorientation. Patient noted to sleep in intervals and sleeping a total of 3 hours. Patient noted to state "I hope I get a psych evaluation before I leave here." Patient was given PRN Motrin, Vistaril, and Benadryl with medication noted to be effective per patient. All needs attended to promptly. Will endorse to continue with plan of care as ordered.
[2017-04-19 08:00] VITALS: BP 139/92
--- NOTE | 2017-04-19 08:00 | NUR ---
START OF SHIFT: RECEIVED PT A/O X 1 TO NAME ONLY. SHE STATES HER KIDS WERE HERE TODAY AND SHE WANTS TO LEAVE. SHE DENIES S/I AND H/I. PT STATES JONATHAN IS THE CURRENT PRESIDENT OF [place]. REORIENTED PT TO PLACE, TIME AND SITUATION. WILL MEDICATE ORDERED. CIWA 13. ATIVAN TAPER COMPLETED. WILL NOTIFY . ENCOURAGED INCREASED FLUIDS. WILL CONTINUE TO PROVIDE SAFE AND SUPPORTIVE ENVIRONMENT.
--- NOTE | 2017-04-19 08:25 | NUR ---
MD communication Pt noted to be confused, pt is AxOx1, oriented to name only. Attempted to contact Dr Bradshaw, awaiting returned phone call. Notified Dr Bob who stated to call crisis team if pt attempts to leave the unit. Pt attempted to leave the unit x 2, pt redirected, placed on a 1:1 and Susi from crisis team called. Will continue to monitor pt.
[2017-04-19] MEDS: LACTOBACILLUS RHAMNOSUS GG 1 EACH CAPSULE PO SCH ×2 (09:24→20:45)
[2017-04-19] MEDS: MULTIVITAMINS,THERAPEUTIC TABLET PO SCH (09:24)
[2017-04-19] MEDS: THIAMINE HCL 100 MG TABLET PO SCH (09:24)
[2017-04-19] MEDS: FOLIC ACID 1 MG TABLET PO SCH (09:25)
[2017-04-19] MEDS: GABAPENTIN 300 MG CAPSULE PO SCH ×3 (09:25→20:45)
[2017-04-19] MEDS: NITROFURANTOIN/NITROFURAN MAC 100 MG CAPSULE PO SCH ×2 (09:25→20:45)
--- NOTE | 2017-04-19 10:50 | NUR ---
PT REPORTS DIARRHEA AND H/A 5/10 ON PAIN SCALE.PRN IMODIUM AND MOTRIN GIVEN. SHE IS A/O X 4 AND STATES SHE WAS HALLUCINATING EARLIER AND SHE APOLOGIZED FOR BEING DIFFICULT. PT STATES THIS IS PART OF HER WITHDRAWAL PROCESS. WILL MONITOR EFFECTIVENESS OF PRNS. 1:1 CONTINUED FOR SAFETY.
--- NOTE | 2017-04-19 11:50 | NUR ---
PT STATES HER H/A HAS SUBSIDED AND SO HAS THE DIARRHEA. PRNS EFFECTIVE.
[2017-04-19 12:00] VITALS: BP 123/82
--- NOTE | 2017-04-19 14:53 | NUR ---
Therapist prompted client about group times. Client stated she is not going due to "medical problems."
[2017-04-19 16:00] VITALS: BP 122/78
--- NOTE | 2017-04-19 18:52 | NUR ---
END OF SHIFT: PT CONTINUES WITH 1:1. SHE HAS PERIODS OF CONFUSION AND VISUAL HALLUCINATIONS. HER HANDS ARE TREMULOUS AND SHE STATES SHE HAS SOME ANXIETY AND IS AWARE SHE BECOMES CONFUSED. PT IS COMPLIANT WITH MEDS AND TREATMENT PLAN. SHE SHOWERED THIS AM. CRISIS TEAM ASSESSED PT PT WAS THREATENING TO LEAVE. CRISIS TEAM NURSE SUGGESTED A STRONGER SLEEP MED. MADE AWARE. WILL PASS SHIFT REPORT TO ONCOMING NURSE.
[2017-04-19 20:00] VITALS: BP 118/80
--- NOTE | 2017-04-19 20:00 | NUR ---
1999 Patient received awake, alert and lying in bed watching television with 1 to 1 LAB ANALYST staff at bedside. Patient responds to nurse's greeting and introduction with, " Hi, I'm Jennifer and your name again is?" Patient is oriented to person, place, day, date and her personal situation. Patient easily reoriented to time. Patient's color is tannish-pink and her skin is warm, very slightly moist and intact. Patient states that she is eating and taking fluids "really good". Patient denies going to [employer], "lately" and her conversation with nurse is both appropriate and rambling and disjointed at the same time. Vital signs are: [id number] 118/80 O2 Sat 100%, CIWA 6 . Patient denies any pain or other discomforts and she offers no requests for anything at this time. Patient's overall appearance is disheveled and multiple juice bottles and various candy wrappers, both empty and full are noted in and around patient's bed. Patient refuses nurse's offer to clean up bottles or wrappers. Patient states, " It's okay for now". LAB ANALYST female 1 to1 staff at bedside. Bed is locked and in lowest position, bed rails are up X 2 and call light within patient's easy reach.
[2017-04-19] MEDS: QUETIAPINE FUMARATE 100 MG TABLET PO SCH (20:45)
[2017-04-19] MEDS: TRAZODONE 50 MG TABLET PO SCH (20:45)
[2017-04-19] MEDS ORDERED: QUETIAPINE FUMARATE 25 MG TABLET PO SCH (21:00)
[2017-04-19] MEDS: ONDANSETRON ODT 4 MG TAB.RAPDIS SL PRN (22:32)
--- NOTE | 2017-04-19 22:32 | NUR ---
PRN MEDICATION: Prn Zofran 0.4 mg SL given for small episode of partially digested sandwich. Patient states, " Oh, I was eating while laying down flat in bed, and I kind of choked, I guess".
--- NOTE | 2017-04-19 23:32 | NUR ---
REASSESSMENT PRN MEDICATION: Patient taking spoonfuls of crushed ice and sips of sprite. Patient states that she has no feelings of nausea and has had no further episodes of vomiting, since prn med Zofran given.
[2017-04-20] VITALS: BP 116/62
[2017-04-20] MEDS: DICYCLOMINE HCL 20 MG TABLET PO SCH ×4 (00:14→18:00)
[2017-04-20] MEDS: HYDROXYZINE PAMOATE 25 MG CAPSULE PO SCH ×4 (01:48→20:22)
[2017-04-20 04:00] VITALS: BP 112/68
[2017-04-20] MEDS: ACETAMINOPHEN ES 500 MG TABLET PO SCH ×3 (06:13→21:04)
--- NOTE | 2017-04-20 06:30 | NUR ---
0630 Patient was restless, talkative and puttering in and around her bed all night, thus she slept approximately 45 minutes. Patient went down to hospital patio with 1 to 1 staff, several times to smoke. Gait steady. Patient oriented to person, place and her personal situation all shift, though she is just sometimes oriented to date, day and time. Prn medication given noted separately per floor protocol. V/SS afebrile, last CIWA at 0400 is 7. Total intake was 1,619 ml p.o. and she had 6 voids and 1 stools. Patient was admitted on 04/12/17 for Alcohol and Methamphetamine withdrawal and 5-Day Ativan medication taper has been completed at this time. Patient is presently resting quietly in -like position with eyes closed and respirations quiet, even, unlabored at 12. 1 to 1 LPN PRIVATE D[employer]Y staff continues at bedside.
[2017-04-20 08:00] VITALS: BP 171/83
--- NOTE | 2017-04-20 08:05 | NUR ---
START OF SHIFT: RECEIVED PT A/O X 4. 1:1 SITTER AT BEDSIDE. PT STATES SHE HAS NOT HALLUCINATED THIS AM. SHE STATES SHE HAS TROUBLE SLEEPING AND HAS BEEN UP ALL NIGHT. ENCOURAGED REST AND FLUIDS. TREMORS NOTED TO BILATERAL HANDS. SHE STATES SHE IS EATING 100% OF MEALS. SHE DENIES PAIN. CIWA 4.WILL CONTINUE TO MONITOR AND OFFER SUPPORT.
[2017-04-20] MEDS: NITROFURANTOIN/NITROFURAN MAC 100 MG CAPSULE PO SCH ×2 (09:29→20:24)
[2017-04-20] MEDS: GABAPENTIN 300 MG CAPSULE PO SCH ×3 (09:29→20:23)
[2017-04-20] MEDS: FOLIC ACID 1 MG TABLET PO SCH (09:29)
[2017-04-20] MEDS: THIAMINE HCL 100 MG TABLET PO SCH (09:29)
[2017-04-20] MEDS: LACTOBACILLUS RHAMNOSUS GG 1 EACH CAPSULE PO SCH ×2 (09:29→20:23)
[2017-04-20] MEDS: MULTIVITAMINS,THERAPEUTIC TABLET PO SCH (09:29)
--- NOTE | 2017-04-20 10:30 | NUR ---
1;1 DISCONTINUED Q 15 MIN CHECKS RESUMED BY METAL CASTER.
[2017-04-20 11:53] LABS: *AMPHETAMINE, URINE NEGATIVE (NEGATIVE); *BARBITURATE, URINE NEGATIVE (NEGATIVE); *CANNABINOID, URINE NEGATIVE (NEGATIVE); *COCCAINE, URINE NEGATIVE (NEGATIVE); *OPIATE, URINE NEGATIVE (NEGATIVE); *PHENCYCLIDINE SCREEN,URINE NEGATIVE (NEGATIVE)
[2017-04-20 12:00] VITALS: BP 107/86
[2017-04-20 16:00] VITALS: BP 132/73
--- NOTE | 2017-04-20 18:51 | NUR ---
END OF SHIFT: PT COMPLETED ATIVAN TAPER A FEW DAYS AGO. SHE WAS A/O X 4 WITH SOME SHORT PERIODS OF CONFUSION.NO HALLUCINATIONS NOTED. HER GAIT IS STEADY. DISCHARGE PLANNING IN PROGRESS FOR 04/21. PT REFUSED BENTYL THIS EVENING AND STATED SHE DOESN'T NEED IT. PT CONTINUES WITH TREMORS TO HANDS AND SOME ANXIETY. NO PRNS GIVEN ON SHIFT. LAST CIWA 2. WILL PASS SHIFT REPORT TO ONCOMING NURSE.
[2017-04-20 20:00] VITALS: BP 141/90
--- NOTE | 2017-04-20 20:00 | NUR ---
Start of Shift Pt is a 62 year old female admitted for Etoh Dependence, placed on 5 day Ativan taper, completed. Pt reported consuming 1/5th of Vodka and Methamphetamine "few hit" daily. PMH: depression, seizure r/t withdrawal 10 years ago, chronic back pain and neuropathy. NKA, regular diet, fall/seizure precautions and full code. Upon assessment, pt presents in room, reports headache and anxiety, skin is flushed, noted with moderate sweat, respirations even/unlabored, bowel sounds active x4, abdomen soft. Pt is scheduled for discharge tomorrow. Pt is on 1:1 due to safety/hallucinations. Safety measures in place, call light within reach, side rails up x2, bed locked and in low position. Will continue to monitor
--- NOTE | 2017-04-20 20:20 | NUR ---
Nursing Note Sitter at bedside reports that patient is hallucinating. Patient is stating, "My son is waving to me outside". Pt reoriented, scheduled Seroquel administered. Safety measures in place, will continue to monitor.
[2017-04-20] MEDS: QUETIAPINE FUMARATE 100 MG TABLET PO SCH (20:24)
[2017-04-20] MEDS: TRAZODONE 50 MG TABLET PO SCH (20:24)
[2017-04-20] MEDS ORDERED: LACT1CAP57 PO (23:08)
[2017-04-20] MEDS ORDERED: DICY20TA28 PO (23:08)
[2017-04-20] MEDS ORDERED: HYDR-3895 PO (23:08)
[2017-04-20] MEDS ORDERED: NITR100C11 PO (23:08)
[2017-04-21] VITALS: BP 97/64
[2017-04-21] MEDS: DICYCLOMINE HCL 20 MG TABLET PO SCH ×3 (01:01→12:00)
[2017-04-21] MEDS: HYDROXYZINE PAMOATE 25 MG CAPSULE PO SCH ×3 (01:01→13:28)
[2017-04-21] MEDS: diphenhydrAMINE 50 MG CAPSULE PO PRN (01:58)
--- NOTE | 2017-04-21 01:58 | NUR ---
PRN Administration Pt requested aid to help her sleep. Benadryl 50mg PRN administered. Safety measures in place. Will continue to monitor.
--- NOTE | 2017-04-21 02:58 | NUR ---
PRN Reassessment Pt is in bed, eyes closed, sleeping with respirations even/unlabored. Safety measures in place. Will continue to monitor.
[2017-04-21 04:00] VITALS: BP 118/75
[2017-04-21] MEDS: ACETAMINOPHEN ES 500 MG TABLET PO SCH ×2 (06:43→13:28)
--- NOTE | 2017-04-21 07:00 | NUR ---
End of Shift Pt is a 62 year old female admitted for Etoh Dependence, placed on 5 day Ativan taper, completed. Pt reported consuming 1/5th of Vodka and Methamphetamine "few hit" daily. PMH: depression, seizure r/t withdrawal 10 years ago, chronic back pain and neuropathy. NKA, regular diet, fall/seizure precautions and full code. During shift, pt reported headache and anxiety, skin is flushed, noted with moderate sweat - scheduled medications administered, along with Benadryl 50mg PRN for sleep. Pt is on 1:1 due to safety/hallucinations. Pt experienced hallucination episodes during shift. Odalyster reported that patient stated a few times during shift, ""My son is waving to me outside". Scheduled Seroquel administered, pt reoriented. Pt refused Bentyl 20 scheduled at 0600, risks/benefits explained. PT slept for 5 hours, intake of 1801 ml PO, voids x6 and stools x2. Pt is scheduled for discharge today, CIWA 2. Safety measures in place, call light within reach, side rails up x2, bed locked and in low position. Endorsed to day shift nurse.
--- NOTE | 2017-04-21 07:00 | NUR ---
start of shift note:received pt from outboard system operator nurse, pt is in stable condition at this time no s/s of pain or discomfort. pt is admitted to to [facility] for etoh and meth withdrawal/dependence. pt is set to discharge today. will assist pt in discharging and will continue to monitor pt for any changes.
[2017-04-21] MEDS: NITROFURANTOIN/NITROFURAN MAC 100 MG CAPSULE PO SCH (08:24)
[2017-04-21] MEDS: FOLIC ACID 1 MG TABLET PO SCH (08:24)
[2017-04-21] MEDS: THIAMINE HCL 100 MG TABLET PO SCH (08:24)
[2017-04-21] MEDS: GABAPENTIN 300 MG CAPSULE PO SCH ×2 (08:24→14:22)
[2017-04-21] MEDS: MULTIVITAMINS,THERAPEUTIC TABLET PO SCH (08:24)
[2017-04-21] MEDS: LACTOBACILLUS RHAMNOSUS GG 1 EACH CAPSULE PO SCH (08:24)
[2017-04-21 09:00] VITALS: BP 107/72
[2017-04-21] MEDS ORDERED: QUETIAPINE FUMARATE 25 MG TABLET PO SCH (09:00)
[2017-04-21 13:16] VITALS: BP 144/97
--- NOTE | 2017-04-21 14:00 | NUR ---
PRN ADMINISTRATION: PT VERBALIZED SHE IS HAVING EPISODES OF LOOSE BOWL MOVEMENTS AND WOULD LIKE MEDICATION TO HELP WITH THE LOOSE STOOLS.
--- NOTE | 2017-04-21 14:45 | NUR ---
PRN RE-ASSESSMENT: PT VERBALIZED AFTER RECEIVING IMODIUM, PT HAS NOT HAD ANY BOUTS OF LOOSE STOOLS
--- NOTE | 2017-04-21 15:45 | NUR ---
DISCHARGE NOTE: PT LEFT THE UNIT IN STABLE CONDITION, PT VERY AGITATED WITH DISCHARGE PLAN. PT WITH VERBALIZATION SHE IS UPSET AND THAT OUR FACILITY TRANSPORTATION SHOULD ARRIVE SOONER. PT WITHOUT S/S OF WITHDRAWAL. PT NOTED WITH TREMORS D/T ANXIETY AND AGITATION. PT TEACHING ADMINISTERED AND PT VERBALIZED UNDERSTANDING. PT WILL BE TRANSFERRED HOME VIA PRIVATE CARE
[2017-04-21] MEDS ORDERED: TRAZODONE 50 MG TABLET PO SCH (21:00)
== END 2017-04-21 15:45 | disposition home or self-care (01) | DRG 895 ==
LOC: SRC 18:39
PROVIDERS: ADMIT Internal Medicine; ATTEND Internal Medicine
PROC: HZ2ZZZZ Detoxification Services for Substance Abuse Treatment (ICD-10-PCS; principal; 2017-04-12)
PROC: HZ31ZZZ Individual Counseling for Substance Abuse Treatment, Behavioral (ICD-10-PCS; 2017-04-14)
PROC: HZ41ZZZ Group Counseling for Substance Abuse Treatment, Behavioral (ICD-10-PCS; 2017-04-20)
DX: F10.239 Alcohol dependence with withdrawal, unspecified (principal); G92 Toxic encephalopathy; N39.0 Urinary tract infection, site not specified; F15.10 Other stimulant abuse, uncomplicated; Y90.9 Presence of alcohol in blood, level not specified; N76.0 Acute vaginitis; B96.89 Other specified bacterial agents as the cause of diseases classified elsewhere; E83.42 Hypomagnesemia; E87.6 Hypokalemia; F12.90 Cannabis use, unspecified, uncomplicated; Z65.3 Problems related to other legal circumstances; F32.9 Major depressive disorder, single episode, unspecified; T42.4X5A Adverse effect of benzodiazepines, initial encounter; Y92.230 Patient room in hospital as the place of occurrence of the external cause
CPT/HCPCS: 36415; 70030-TC; 71010; 80307; 80324; 83690; 83735; 84100; 84443; 85025; 86580; 86592; 86705; 86803; 87086; 87340; 87806; G0480; J1885; J3411; Q0162; Q0163